=== PATIENT | male | born 2000 | race Two or more races ===

== ENCOUNTER 2018-07-08 16:46 | Emergency (ER) | payer SELFPAY ==
--- NOTE | 2018-07-08 17:01 | EDM.PDOC ---
ED HPI GENERAL MEDICAL PROBLEM - General Chief Complaint: Back Pain or Injury Stated Complaint: BACK INJURY Time Seen by Provider: 07/08/18 16:54 Source of Information: Reports: Family History Limitations: Reports: Language Barrier - History of Present Illness INITIAL COMMENTS - FREE TEXT/NARRATIVE: HISTORY AND PHYSICAL: History of present illness: Patient is a 18-year-old male who is fully Portuguese-speaking. Patient's father is translating for him today. 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 This morning, patient states he woke up with mid back pain that has been "spasm " throughout the day. Patient states he feels as if he is not able to get up very well due to this. He states he did not injure his back and has not done anything that he can think of that would be causing the pain. Patient states he' s had no prior trauma or injury to this area. Patient denies fever, chills, nausea, vomiting, foul anesthesia, loss of bowel or bladder function, change in bowel habits, burning with urination, blood in stool or urine, pain, chest pain, shortness of breath, or all other GI, , respiratory, or cardiovascular concerns. Patient denies any health history. Review of systems: As per history of present illness and below otherwise all systems reviewed and negative. Past medical history: As per history of present illness and as reviewed below otherwise noncontributory. Surgical history: As per history of present illness and as reviewed below otherwise noncontributory. Social history: See social history for further information Family history: As per history of present illness and as reviewed below otherwise noncontributory. Physical exam: General: Patient is alert, oriented, and in no acute distress. He is mildly uncomfortable appearing but lying comfortably on exam table. HEENT: Atraumatic, normocephalic, pupils equal and reactive bilaterally, negative for conjunctival pallor or scleral icterus, mucous membranes moist, TMs normal bilaterally, throat clear, neck supple, nontender, trachea midline. No drooling or trismus noted. No meningeal signs. No hot potato voice noted. Lungs: Clear to auscultation, breath sounds equal bilaterally, chest nontender. Heart: S1S2, regular rate and rhythm without overt murmur Abdomen: Soft, nondistended, nontender. Negative for masses or hepatosplenomegaly. Negative for costovertebral tenderness. Pelvis: Stable nontender. Genitourinary: Deferred. Rectal: Deferred. Skin: Intact, warm, dry. No lesions or rashes noted. Extremities/musculoskeletal: Patient does have pain to palpation of the general thoracic spine and surrounding musculature. He does not have pain to palpation of the cervical or lumbar spine. Patient does have limited range of motion of the thoracic spine due to pain. Patient has full range of motion of bilateral lower extremities without weakness or deficit. He has full sensation of bilateral extremities without deficit. No step-offs, crepitus, or obvious deformities of the complete spine. Otherwise, atraumatic, negative for cords or calf pain. Neurovascular unremarkable. Neuro: Awake, alert, oriented. Cranial nerves II through XII unremarkable. Cerebellum unremarkable. Motor and sensory unremarkable throughout. Exam nonfocal. Notes: On exam, patient does have limited range of motion of the thoracic spine due to pain. We'll do imaging to assess for underlying injury. Thoracic x-ray shows no acute osseous abnormality. Discussed these findings with patient and his father. Supportive care measures were reviewed and discussed. Voices understanding and is agreeable to plan of care. Denies any further questions or concerns at this time. Diagnostics: Thoracic x-ray Therapeutics: Norflex, Toradol Prescription: Flexeril, diclofenac Impression: 1. Thoracic back pain, unspecified Plan: 1. Take medications as prescribed. 2. You can alternate ibuprofen and Tylenol as directed for pain or discomfort. 3. Follow-up with her primary care provider as discussed. 4. Return to the ED as needed and as discussed. Definitive disposition and diagnosis as appropriate pending reevaluation and review of above. midback pain Pain Score (Numeric/FACES): 7 - Related Data Allergies Allergy/AdvReac Type Severity Reaction Status Date / Time No Known Allergies Allergy Verified 07/08/18 17:01 Home Meds: Home Meds Cyclobenzaprine [Flexeril] 10 mg PO TID PRN #20 tablet 07/08/18 [Rx] Diclofenac Sodium [Voltaren] 75 mg PO BIDMEALS PRN #30 tab.cr 07/08/18 [Rx] ED ROS GENERAL - Review of Systems Review Of Systems: ROS reveals no pertinent complaints other than HPI. ED EXAM,LOWER BACK PAIN/INJURY - Physical Exam Exam: See Below (See dictation) Course - Vital Signs Last Recorded V/S: Last Vital Signs Temp 99.0 F 07/08/18 17:03 Pulse 60 07/08/18 17:03 Resp 18 07/08/18 17:03 BP 119/71 07/08/18 17:03 Pulse Ox 98 07/08/18 17:03 - Orders/Labs/Meds Orders: Active Orders 24 hr Category Date Time Status Thoracic Spine 3V [CR] Stat Exams 07/08/18 17:14 Taken Meds: Medications Discontinued Medications Generic Name Dose Route Start Last Admin Trade Name Freq PRN Reason Stop Dose Admin Ketorolac Tromethamine 60 mg 07/08/18 17:14 07/08/18 17:22 Toradol IM 07/08/18 17:15 60 mg ONETIME ONE Administration Orphenadrine Citrate 60 mg 07/08/18 17:14 07/08/18 17:21 Norflex IM 07/08/18 17:15 60 mg NOW STA Administration Departure - Departure Time of Disposition: 18:14 Disposition: Home, Self-Care 01 Clinical Impression: Thoracic back pain Qualifiers: Chronicity: unspecified Back pain laterality: unspecified Qualified Code(s): M54.6 - Pain in thoracic spine - Discharge Information Prescriptions: Cyclobenzaprine [Flexeril] 10 mg PO TID PRN #20 tablet PRN Reason: Muscle Spasm Diclofenac Sodium [Voltaren] 75 mg PO BIDMEALS PRN #30 tab.cr PRN Reason: Muscle Spasm Instructions: Back Pain, Adult, [id number] Referrals: PCP,None [Primary Care Provider] - Forms: ED Department Discharge Additional Instructions: The following information is given to patients seen in the emergency department who are being discharged to home. This information is to outline your options for follow-up care. We provide all patients seen in our emergency department with a follow-up referral. The need for follow-up, as well as the timing and circumstances, are variable depending upon the specifics of your emergency department visit. If you don't have a primary care physician on staff, we will provide you with a referral. We always advise you to contact your personal physician following an emergency department visit to inform them of the circumstance of the visit and for follow-up with them and/or the need for any referrals to a consulting specialist. The emergency department will also refer you to a specialist when appropriate. This referral assures that you have the opportunity for follow-up care with a specialist. All of these measure are taken in an effort to provide you with optimal care, which includes your follow-up. Under all circumstances we always encourage you to contact your private physician who remains a resource for coordinating your care. When calling for follow-up care, please make the office aware that this follow-up is from your recent emergency room visit. If for any reason you are refused follow-up, please contact the [facility] at and asked to speak to the emergency department charge nurse. [facility] [address] [place] [id number] [facility] [address] [place] [id number] 1. Take medications as prescribed. 2. You can alternate ibuprofen and Tylenol as directed for pain or discomfort. 3. Follow-up with her primary care provider as discussed. 4. Return to the ED as needed and as discussed. - My Orders Last 24 Hours: My Active Orders 07/08/18 17:14 Thoracic Spine 3V [CR] Stat - Assessment/Plan Last 24 Hours: My Active Orders 07/08/18 17:14 Thoracic Spine 3V [CR] Stat
[2018-07-08] MEDS ORDERED: Ketorolac 60 MG/2 ML SDV IM ONE (17:14)
--- NOTE | 2018-07-09 11:43 | CR ---
EXAM DATE: 07/08/18 PATIENT'S AGE: 18 Patient: BORA MCLEOD Facility: [facility] Site . Site : 2000 Study: XRay-Spine Thoracic [id number]/4/2019 5:38:57 PM Ordering Physician: Doctor Angel Final Report: INDICATION: Thoracic spine Pain since this morning. No injury TECHNIQUE: Thoracic spine radiograph 3 views COMPARISON: None FINDINGS: Bone: No acute fractures or aggressive bone lesions are identified. Alignment is normal. Disc: The disc spaces are unremarkable in appearance. The facet joints are unremarkable. Soft tissue: Unremarkable. No radiopaque foreign bodies are seen. IMPRESSION: 1. No acute osseous injuries or abnormalities are noted. Dictated by: Jigar Chavez MD @ 07/08/2018 18:00:57 Signed by: Jigar Chavez MD @07/08/2018 6:00:57 PM (Electronic Signature) Report Signed by Proxy. [facility] CENTERCaesar
== END 2018-07-08 18:33 | disposition home or self-care (01) ==
LOC: MW.ED 16:46
DX: M54.6 Pain in thoracic spine (principal)
CPT/HCPCS: 72072; 96372; 99283; J1885; J2360